=== PATIENT | female | born 1970 | race Caucasian/White ===

== ENCOUNTER 2024-01-26 12:51 | Day surgery (SDC) | payer OTHER, SELFPAY ==
--- NOTE | 2024-01-09 15:54 | PCM.HP.BLA ---
History and Physical Date of Admission: 01/26/24 HPI: The patient is a 53 year old female presenting for pre-operative visit. She is scheduled for Hysteroscopy D&C, polyp resection for AUB and endomtrial polyp on 01/26/24. Procedure discussed along with risks, benefits and complications. Other alternatives discussed for management. Consent form signed? Yes. ? ? PAST MEDICAL HISTORY PAST MEDICAL HISTORY Diagnosis Date ? Anxiety ? ? Elevated cholesterol ? ? Essential hypertension, benign ? ? ? PAST SURGICAL HISTORY PAST SURGICAL HISTORY Procedure Laterality Date ? COLONOSCOPY ? 03/18/2022 ? ? ? CURRENT MEDICATIONS Current Outpatient Medications Medication Sig Dispense Refill ? norgestimate 0.25 mg-ethinyl estradiol 35 mcg (SPRINTEC) 0.25-35 mg-mcg per tablet Take 1 tablet by mouth once daily. 28 tablet 11 ? metoprolol tartrate, short acting, (LOPRESSOR) 50 mg tablet Take 1 tablet by mouth twice daily. 60 tablet 5 ? enalapril (VASOTEC) 10 mg tablet Take 1 tablet by mouth once daily. 30 tablet 5 ? felodipine ER (PLENDIL) 5 mg 24 hr tablet Take 1 tablet by mouth once daily. 30 tablet 5 ? citalopram (CELEXA) 40 mg tablet Take 0.5 tablets by mouth once daily. For anxiety. 15 tablet 5 ? venlafaxine ER (EFFEXOR XR) 75 mg 24 hr capsule Take 1 capsule by mouth once daily. 30 capsule 5 ? simvastatin (ZOCOR) 20 mg tablet Take 1 tablet by mouth daily at bedtime. 30 tablet 5 ? No current facility-administered medications for this visit. ? ? ALLERGIES: Hctz [Thiazides] ? PERSONAL HISTORY: SOCIAL HISTORY Social History ? Tobacco Use ? Smoking status: Former ? ? Types: Cigarettes ? ? Quit date: 04/02/2008 ? ? Years since quittin.7 ? Smokeless tobacco: Never ? Tobacco comments: ? ? date approximate Vaping Use ? Vaping Use: Never used Substance Use Topics ? Alcohol use: Yes ? ? Comment: OCCASSIONALLY ? Drug use: No ? FAMILY HISTORY: FAMILY HISTORY FAMILY HISTORY Problem Relation Age of Onset ? Diabetes Mother ? ? HYPERTENSION CVA ? Hypertension Mother ? ? Lipids Mother ? ? Stroke Mother ? ? Hypertension Father ? ? CVA ? Lipids Father ? ? Stroke Father ? ? Colon Cancer Father 67 ? Hypertension Sister ? ? Heart Maternal Grandmother ? ? Lung Cancer Paternal Grandmother ? ? other (LEUKEMIA) Maternal Aunt ? ? Breast Cancer Maternal Aunt ? ? ? REVIEW OF SYMPTOMS: GENERAL: denies fevers or chills ENDOCRINOLOGY: has not been on steroids Cardiology : denies palpitations or chest pain Respiratory: denies SOB or cough Hematology: denies history of prolonged bleeding or easy bruising or VTE Allergy: Denies history of personal or family history of allergy to anesthesia ? PHYSICAL EXAMINATION: ? VITALS: Blood pressure 142/94, height 5' 2 (1.575 m), weight 271 lb (122.9 kg), last menstrual period 11/25/2023. ? GENERAL: The patient is well nourished, well hydrated in no acute distress. , The patient is oriented to time, place, and person. NECK: Supple. No lynphadenopathy, normal thyroid, no thyromegaly. LUNGS: Clear to auscultation bilaterally. no wheezes, rhonchi or rales HEART: Regular rate and rhythm, Normal heart sounds, and No murmurs or gallops ? IMPRESSION: menorrhagia- AUB, endometrial polyp ? PLAN: The risks/benefits/alternatives and personal involved for the planned h hysteroscopy D&C with polyp resection were reviewed with the patient. Her questions were answered to her satisfaction and she desires to proceed. Consent was signed. I reviewed with her postop instructions and expectations. ? ? I have reviewed and updated past medical and surgical history, medications and allergies Assessment & Plan Assessment/Plan (1) Menorrhagia: (2) Endometrial polyp: (3) Abnormal uterine bleeding (AUB):
[2024-01-26] VITALS (8 sets, daily range): BP systolic 114–176; BP diastolic 58–85; PULSE 63–78; RESP 14–18; TEMP 36.4–36.6; O2SAT 94–100; BMI 48.9
[2024-01-26] MEDS: Acetaminophen 500 MG Tablet 1000 MG PO (13:58)
[2024-01-26] MEDS: Ketorolac 30 MG/ML Syringe IV (13:59)
[2024-01-26] MEDS: Lactated Ringers 1,000 ML 15 ML IV (13:59)
[2024-01-26 14:17] LABS: Internal QC Validated? YES +Cl - CLEAR BKGD; Record Kit Lot#,Urine Preg HCG0000718089
[2024-01-26 14:20] LABS: Pregnancy, Urine Negative Negative
[2024-01-26 14:23] LABS: Hematocrit 39.4 % (37-47); Hemoglobin 11.3 g/dL (12.0-15.0); Mean Corp Hgb Conc 28.7 g/dL (32-36); Mean Corpuscular Volume 73.1 fL (81-99); Mean Platelet Vol. 11.2 fl (6.2-12.0); Platelet Count 346 K/mm3 (150-450); RBC Distribution Width CV 18.7 % (11.6-14.6); RBC Distribution Width SD 47.4 fl (35.1-43.9); Red Blood Count 5.39 M/mm3 (4.2-5.4)
[2024-01-26 14:31] LABS: Anion Gap 7 (5-15); BUN 16 mg/dL (7-18); BUN/Creat Ratio 22.1 RATIO (10-20); Calcium,Total 8.6 mg/dL (8.5-10.1); Chloride 105 mmol/L (98-107); Creatinine, Serum 0.72 mg/dL (0.55-1.02); EST Glomerular Filtration Rate 90 mL/min (>60); Est Glom Filt Rate - Afr Amer 109 mL/min (>60); Estimated Creatinine Clearance 114.79 ml/min; Glucose 112 mg/dL (74-106); Potassium 3.7 mmol/L (3.5-5.1); Sodium Level 141 mmol/L (136-145)
--- NOTE | 2024-01-26 14:45 | EMB_PTH ---
PATIENT: NORTH RODRIGUEZ LOC: [facility] [place] U#:[id number] AGE/SX: 53/F ROOM: RE01/26/[address]: Dr. Priscilla Bertrand MD : 1970 BED: DIS: 01/26/2024 SPEC #: [id number] RECD: 01/27/24 11:09 STATUS: WILTON SCHULTZ #: [id number] VANESSA: 01/26/24 14:[address]: Priscilla Bertrand DEPT: SURGICAL PATHOLOGY RECD BY: Chayo Adler ENTERED: 01/27/24 12:02 SP TYPE: ENDOM BX/C OTHR DR: Dr. Nico Wheeler MD Tissues: Endometrium, NOS Procedures: Surgery Specimen Level IV HEADER OPERATION: Hysteroscopy, D&C, polypectomy, Symphion PRE-OP DIAGNOSIS: Menorrhagia, Endometrial polyp, Abnormal uterine bleeding TISSUE SUBMITTED: Endometrial Currettings and polyp MICROSCOPIC DIAGNOSIS Endometrial Curettings and polyp: Polypoid fragments of weakly proliferative to inactive endometrium. Fragments of benign myometrium. AM/mr 01/31/2024 MICROSCOPIC DESCRIPTION Slides are reviewed. GROSS DESCRIPTION Received in fixative is one container labeled with the patient's name and designated Endometrial Curettings and polyp. The specimen consists of multiple irregular fragments of chowdary soft tissue mixed with hemorrhagic soft tissue that in aggregate measure 3.0 x 2.5 x 0.3 cm. The specimen is totally submitted in one cassette. GILMA/ 01/27/24 TC:5 CPT:40382
--- NOTE | 2024-01-26 16:13 | PCM.DC ---
Discharge Instructions Diet Discharge Diet: No restrictions Activity Return to work on:: 01/30/24 May resume sexual activity in: 2 weeks Lifting Restrictions: none Additional Activity Instructions:: Take acetaminophen or ibuprofen and use a heating pad as needed for cramping. Dressing / Incision Call your doctor if your incision/area has: Sudden Increased Bleeding and Foul Smelling Discharge Call your doctor if you observe: Fever of 101 or Higher and Using more than 1 pad per hour (for 2 hrs in a row) Follow Up Care Please Follow Up With: Priscilla Bertrand MD When: We will contact you with your pathology next week. You do not have to have a postop appointment. Call [phone] or send a [email or web address] message to make an appointment or with any concerns. Test Results: Test results from this visit will be discussed in further detail at your follow-up appointment, if applicable. Discharge Plan Admission Primary Reason for Your Visit: Hysteroscopy D&C with polyp resection Attending Provider: Priscilla Bertrand Primary Care Provider: Nico Wheeler Discharge Orders/Prescriptions Prescriptions: No Action norgestimate-ethinyl estradiol [Tessa] 0.25-35 mg-mcg tablet 1 tab PO DAILY simvastatin 20 mg tablet 20 mg PO QHS metoprolol tartrate 50 mg tablet 50 mg PO BID amlodipine 5 mg tablet 5 mg PO DAILY venlafaxine 75 mg tablet 75 mg PO DAILY citalopram 40 mg tablet 40 mg PO DAILY enalapril maleate 10 mg tablet 10 mg PO DAILY Referrals / Follow Up: Care Physician,No Primary [Non-Staff] - Disposition Disposition (needs filled in before D/C Order can be placed): Home, Self Care
--- NOTE | 2024-01-26 16:26 | OP.PCM_ITS ---
Problems Associated Problem List Diagnoses (1) Abnormal uterine bleeding (AUB): (2) Endometrial polyp: Report of Operation Date of Procedure: 01/26/24 Pre-Operative Diagnosis: endometrial polyp, AUB Post-Operative Diagnosis: same Surgery/Procedure Performed:: hysteroscopy D&C with polyp resection Description of Surgical Findings:: normal cervix and vagina. Thin endometrium with small polyp at fundus Surgeon: Priscilla Bertrand carburetor rebuilder: None Type of Anesthesia: MAC/Supplemental/Local Anesthesiologist: Joseph Perdomo Special Medications: none Specimen's removed: endometrial curettings and polyp Drains: none Estimated Blood Loss (mL): 5 Fluids Replaced: 500 Description of Procedure: The patient was taken to the OR where she was prepped and draped in dorsal lithotomy position. The weighted speculum was placed in the vagina and the anterior lip of the cervix was grasped with a single-tooth tenaculum. A paracervical block was administered with 1% lidocaine with 1-100,000 epinephrine solution. The cervix was dilated serially with Hegar dilators. The Symphion hysteroscope was placed into the uterine cavity and the above findings were noted. Bilateral tubal ostia were identified. The Symphion resection device was inserted and used to resect the polyp in it's entirety and do a visual D&C to sample the entire endometrium. The instruments were removed from the vagina. The specimen was handed off and sent to pathology. All sponge and needle counts were correct. Vaginal sweep was performed by me. The patient was awakened and taken to the recovery room in stable condition. Cacluclated hysteroscopic fluid deficit 350 cc of normal saline Grafts/Implants Used: none Procedure Start Time: 16:36 Procedure Stop Time: 16:45 Complications none Admit VTE Documentation VTE Present on Admission: No VTE Mechan Device Prophylaxis: [facility] [place] VTE Pharm Prophylaxis ordered?: No Reason prophylaxis not ordered:: Procedure Not Indicated
[2024-01-26] MEDS: Lidocaine 1% /Epi 1:100 (20ml) 20 ML Vial (16:46)
== END 2024-01-26 17:51 | disposition home or self-care (01) ==
LOC: SDC 12:54 → AC 12:55
PROVIDERS: Anesthesiology; PCP Family Medicine; Referring Provider Obstetrics & Gynecology; Visit Provider Obstetrics & Gynecology
PROC: 0UB98ZZ Excision of Uterus, Via Natural or Artificial Opening Endoscopic (ICD-10-PCS; CPT 58558; principal; 2024-01-26 14:30)
DX: N93.9 Abnormal uterine and vaginal bleeding, unspecified (principal); N92.0 Excessive and frequent menstruation with regular cycle; N84.0 Polyp of corpus uteri; I10 Essential (primary) hypertension; E78.00 Pure hypercholesterolemia, unspecified; Z87.891 Personal history of nicotine dependence; Z79.899 Other long term (current) drug therapy
CPT/HCPCS: 58558; 00952; 80048; 81025; 85027; 88305; J7120; J2405